=== PATIENT | male | born 1995 | race African-American/Black ===

== ENCOUNTER 2019-03-15 09:27 | Emergency (ER) | payer OTHER ==
[2019-03-15 09:32] VITALS: BP 125/69; PULSE 70; TEMP 98.8; BMI 29.2
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
== END 2019-03-15 10:44 | disposition home or self-care (01) ==
LOC: JERFT 09:27
DX: S92.524A Nondisplaced fracture of middle phalanx of right lesser toe(s), initial encounter for closed fracture (principal); V03.10XA Pedestrian on foot injured in collision with car, pick-up truck or van in traffic accident, initial encounter; Y92.414 Local residential or business street as the place of occurrence of the external cause; Y93.89 Activity, other specified; Y99.8 Other external cause status
CPT/HCPCS: 73660-TC-FY; 99282-25